=== PATIENT | female | born 1950 | race Caucasian/White ===

== ENCOUNTER 2018-10-09 20:08 | Emergency (ER) | payer SELFPAY ==
--- NOTE | 2018-10-09 20:54 | UC ---
FLU HPI - HPI Summary HPI Summary: 68 y/o female presents to the urgent care c/o fever, body aches, sore throat, chest congestion and a dry cough since last night. Pt reports pain is 4/10. She has taken Tylenol PO to alleviate symptoms. Last dose taken was at 1800pm. Pt denies SOB, wheezing, chest pain, abdominal pain, N/V/D. Pt reports her grandson was Dx today with influenza A. Pt states she only has one kidney since it was removed many years ago due to severe hydronephrosis. - History of Current Complaint Chief Complaint: UCRespiratory Stated Complaint: FEVER, AND COUGH Time Seen by Provider: 10/09/18 20:54 Hx Obtained From: Patient Onset/Duration: Gradual Onset, Lasting Days - 1 day, Still Present, Worse Since - today Severity Currently: Mild Severity Initially: Moderate Pain Intensity: 8 - body aches Pain Scale Used: 0-10 Numeric Associated Signs & Symptoms: Positive: Fever, Myalgia, Cough - dry, Sore Throat - mild, Nasal Congestion - clear, Headache. Negative: Vomiting, Diarrhea - Risk Factors Influenza Risk Factors: Negative - Allergy/Home Medications Allergies/Adverse Reactions: Allergies Allergy/AdvReac Type Severity Reaction Status Date / Time No Known Allergies Allergy Verified 10/09/18 20:39 Home Medications: Home Medications Amlodipine Besylate [Norvasc 10 mg tab] 10 mg PO DAILY 10/09/18 [History Confirmed 10/09/18] PMH/Surg Hx/FS Hx/Imm Hx Previously Healthy: Yes Cardiovascular History: Hypertension Other GI/ History: Kidney surgery s/p kidney injury - Surgical History Surgical History: Yes Surgery Procedure, Year, and Place: kidney removed - Family History Known Family History: Positive: Cardiac Disease, Hypertension - Social History Occupation: Retired Lives: With Family Alcohol Use: None Substance Use Type: None Smoking Status (MU): Never Smoked Tobacco Review of Systems All Other Systems Reviewed And Are Negative: Yes Constitutional: Positive: Fever - low grade fever at home, Chills, Fatigue, Other - body ahces Skin: Positive: Negative Eyes: Positive: Negative ENT: Positive: Sore Throat - mild, Nasal Discharge - clear, Sinus Congestion Respiratory: Positive: Cough - dry Cardiovascular: Positive: Negative Gastrointestinal: Positive: Negative Genitourinary: Positive: Negative Motor: Positive: Negative Neurovascular: Positive: Negative Musculoskeletal: Positive: Myalgia Neurological: Positive: Headache Psychological: Positive: Negative Is Patient Immunocompromised?: No Physical Exam - Summary Physical Exam Summary: VITAL SIGNS: Reviewed. GENERAL: Patient is a well developed and nourished female who is sitting comfortable in the examining table. Patient is not in any acute respiratory distress. HEAD AND FACE: No signs of trauma. No ecchymosis, hematomas or skull depressions. No sinus tenderness. EYES: PERRLA, EOMI x 2, No injected conjunctiva, no nystagmus. No photophobia. EARS: Hearing grossly intact. Ear canals and tympanic membranes are within normal limits. Nose: edematous and erythematous nasal mucosa w/ clear nasal discharge. MOUTH: Positive no erythema, no tonsillar enlargement. Uvula in midline. NECK: Supple, trachea is midline, Positive anterior cervical lymphadenopathy, no JVD, no carotid bruit, no c-spine tenderness, neck with full ROM. No meningeal signs, no Kernig's or brudzinskis signs. CHEST: Symmetric, no tenderness at palpation LUNGS: Clear to auscultation bilaterally. No wheezing or crackles. CVS: Regular rate and rhythm, S1 and S2 present, no murmurs or gallops appreciated. ABDOMEN: Soft, non-tender. No signs of distention. No rebound no guarding, and no masses palpated. Bowel sounds are normal. EXTREMITIES: FROM in all major joints, no edema, no cyanosis or clubbing. NEURO: Alert and oriented x 3. No acute neurological deficits. Speech is normal and follows commands. SKIN: Dry and warm Triage Information Reviewed: Yes Vital Signs: Initial Vital Signs Temp 99.5 F 10/09/18 20:32 Pulse 106 10/09/18 20:32 Resp 20 10/09/18 20:32 BP 148/79 10/09/18 20:32 Pulse Ox 99 10/09/18 20:32 Flu Course/Dx - Course Course Of Treatment: 68 y/o female presents to the urgent care c/o fever, body aches, sore throat, chest congestion and a dry cough since last night. Pt reports pain is 4/10. She has taken Tylenol PO to alleviate symptoms. Last dose taken was at 1800pm. Pt denies SOB, wheezing, chest pain, abdominal pain, N/V/ D. Pt reports her grandson was Dx today with influenza A. Pt states she only has one kidney since it was removed many years ago due to severe hydronephrosis. Pt with viral syndrome on examination. Influenza A&B ordered: result: Influenza A positive.Pt Rx Tamiflu and ibuprofen PO to alleviates symptoms. Advised on hand washing and wear a mask to avoid spreading. Pt advised to rest, increase fluid intake, eat well and avoid strenuous exercise. Pt's BP is elevated today advised to decrease salt in diet, monitor BP and f/u with PCP for further management.If symptoms do not improve or worsen advised to return to the urgent care or f/u with her PCP for further evaluation and treatment. D/C instructions expalined. Daughter and Pt understood and agreed w/ plan of care. Pt left the clinic ambulating and hemodynaically stable, A&OX3. - Differential Dx/Diagnosis Differential Diagnosis/HQI/PQRI: Broncholiolitis, Influenza, Upper Respiratory Infection Provider Diagnosis: Influenza A, Uncontrolled hypertension Discharge - Sign-Out/Discharge Documenting (check all that apply): Patient Departure - D/c home All imaging exams completed and their final reports reviewed: No Studies - Discharge Plan Condition: Stable Disposition: HOME Prescriptions: Oseltamivir CAP* [Tamiflu CAP*] 75 mg PO BID #9 cap Patient Education Materials: Influenza (ED) Referrals: [facility] [place] [facility]ERR[facility] [Outside] - 2 Days Additional Instructions: 1-Please take the full course of the antiviral to avoid resistance. Encourage hand washing and wear a mask to avoid spreading. 2-Please continue taking Tylenol PO q6-8hrs prn as instructed after meals to alleviate fever, and sore throat. Increase fluid intake, eat well, rest and avoid strenuous exercise 3-Close observation on PT and If symptoms worsen and fever is not control with medications please take your mother immediately to the ER for further management 4- Her BP is elevated today. please decrease salt in your diet, monitor BP and if it continues to be elevated please f/u with her PCP in 1 week for further management. - Billing Disposition and Condition Condition: STABLE Disposition: Home
[2018-10-09 21:17] LABS: Influenza A Molecular POSITIVE (Negative)
[2018-10-09] MEDS ORDERED: Oseltamivir CAP* 75 MG CAP PO ONE (21:21)
[2018-10-09 23:31] VITALS: BP 148/80
== END 2018-10-09 23:31 | disposition home or self-care (01) ==
LOC: UCEAST 20:08
DX: J10.1 Influenza due to other identified influenza virus with other respiratory manifestations (principal); I10 Essential (primary) hypertension; Z90.5 Acquired absence of kidney; Z79.899 Other long term (current) drug therapy
CPT/HCPCS: 99202; A9270-GY; G0463